=== PATIENT | female | born 1975 | race Hispanic/Latino ===

== ENCOUNTER 2021-12-18 13:10 | Emergency (ER) | payer SELFPAY ==
[~2021-12-18 13:10] MED LIST: Iopamidol 300 61% 100 ML VIAL FS ONE
[2021-12-18] MEDS ORDERED: Ondansetron PF 4 MG/2 ML Vial ONE (13:55)
[2021-12-18 14:05] LABS: #Eosinphils 0.1 10x3/uL (0.0-0.5); #Monocytes 0.6 10x3/uL (0.0-1.1); #Neutrophils 2.1 10x3/uL (1.5-8.4); %Basophils 0.7 % (0.0-2.0); %Eosinophils 1.9 % (0.0-6.0); %Lymphocytes 34.4 % (18.0-47.0); %Monocytes 13.3 % (0.0-10.0); %Neutrophils 49.7 % (40.0-75.0); Hemoglobin 14.3 g/dL (12.0-15.5); Mean Corpuscular HGB CONC 33.6 g/dL (32.0-36.0); Mean Corpuscular Hemoglobin 31.6 pg (27.0-33.0); Mean Corpuscular Volume 93.8 fl (81.6-98.3); Platelet Count 200 10x3/uL (150-450); RBC Distribution Width 13.6 % (11.5-14.5); Red Blood Cell (RBC) Count 4.53 10x6/uL (3.90-5.03); White Blood Cell (WBC) Count 4.2 10x3/uL (3.5-10.5)
[2021-12-18 14:18] LABS: INR-International Normal Ratio 1.1; PTT 30.7 sec (22.0-33.0); Prothrombin Time 11.9 sec (9.5-12.1)
[2021-12-18 14:25] LABS: ALT (SGPT) 2403 U/L (8-55); AST (SGOT) 1954 U/L (5-34); Albumin 4.2 g/dL (3.5-5.0); Alkaline Phosphatase 183 U/L (40-110); Anion Gap 17 mmol/L (10-20); BUN (Urea Nitrogen) 10 mg/dL (7.0-18.7); Bilirubin, Total 6.7 mg/dL (0.2-1.2); Calc. Creatinine Clearance 0 mL/min (70-130); Calcium 9.2 mg/dL (7.8-10.44); Carbon Dioxide 21 mmol/L (22-29); Chloride 107 mmol/L (98-107); Estimated GFR 94; Globulin 3.2 g/dL (2.4-3.5); Glucose 111 mg/dL (70-105); Lipase 47 U/L (8-78); Magnesium 1.9 mg/dL (1.6-2.6); Potassium 3.9 mmol/L (3.5-5.1); Protein, Total 7.4 g/dL (6.0-8.3); Sodium 141 mmol/L (136-145)
[2021-12-18 17:37] LABS: Acetaminophen Less than 10.0 mcg/mL (10.0-30.0)
[2021-12-18 17:59] LABS: SARS-CoV-2 NAA Rapid Test Not Detected (NotDetected)
== END 2021-12-18 18:13 | disposition short-term general hospital (02) ==
LOC: CSHERS 13:10
DX: K72.00 Acute and subacute hepatic failure without coma (principal); Z20.822 Contact with and (suspected) exposure to COVID-19
CPT/HCPCS: 36415; 74177; 80053; 80143; 82140; 83605; 83690; 83735; 84443; 84484; 85025; 85610; 85730; 93005; 96374; 80307; J2405; Q9967; U0002

== ENCOUNTER 2022-01-10 14:10 | Inpatient (IN) | payer SELFPAY ==
[2022-01-10 14:47] LABS: #Eosinphils 0.1 10x3/uL (0.0-0.5); #Monocytes 0.9 10x3/uL (0.0-1.1); #Neutrophils 6.9 10x3/uL (1.5-8.4); %Basophils 0.3 % (0.0-2.0); %Eosinophils 0.5 % (0.0-6.0); %Lymphocytes 23.4 % (18.0-47.0); %Monocytes 8.7 % (0.0-10.0); %Neutrophils 66.7 % (40.0-75.0); Hemoglobin 13.7 g/dL (12.0-15.5); Mean Corpuscular HGB CONC 34.1 g/dL (32.0-36.0); Mean Corpuscular Hemoglobin 32.2 pg (27.0-33.0); Mean Corpuscular Volume 94.4 fl (81.6-98.3); Mean Platelet Volume 10.9 fl (7.4-10.4); Platelet Count 235 10x3/uL (150-450); RBC Distribution Width 15.3 % (11.5-14.5); Red Blood Cell (RBC) Count 4.26 10x6/uL (3.90-5.03); White Blood Cell (WBC) Count 10.4 10x3/uL (3.5-10.5)
[2022-01-10 14:52] LABS: Bilirubin Neg (Negative); Blood, Urine 10 (Negative); Clarity Sl. Cloudy (Clear); Glucose, Urine (Dipstick) Normal (Negative); Ketone, Urine Negative (Negative); Leukocyte 25 (Negative); Nitrite Negative (Negative); Protein, Urine (Dipstick) Negative (Neg-Trace); Specific Gravity, Urine 1.015 (1.005-1.030); Urobilinogen Normal mg/dL (Less than 2)
[2022-01-10 14:53] LABS: Pregnancy Test - Urine (BHCG) Negative (Negative); Pregu Control Bar Appear? YES (CONTROL BAR)
[2022-01-10 14:54] LABS: Pregu Control Background? CLEAR/WHITE (CLR/WHITE); Specific Gravity 1.015 (1.002-1.036)
[2022-01-10 15:08] LABS: ALT (SGPT) 917 U/L (8-55); AST (SGOT) 298 U/L (5-34); Albumin 4.1 g/dL (3.5-5.0); Alkaline Phosphatase 145 U/L (40-110); Anion Gap 12 mmol/L (10-20); BUN (Urea Nitrogen) 9 mg/dL (7.0-18.7); Bilirubin, Total 2.2 mg/dL (0.2-1.2); Calc. Creatinine Clearance 0 mL/min (70-130); Calcium 9.2 mg/dL (7.8-10.44); Carbon Dioxide 28 mmol/L (22-29); Chloride 104 mmol/L (98-107); Estimated GFR 98; Globulin 3.1 g/dL (2.4-3.5); Glucose 113 mg/dL (70-105); Potassium 3.6 mmol/L (3.5-5.1); Protein, Total 7.2 g/dL (6.0-8.3); Sodium 140 mmol/L (136-145)
[2022-01-10 15:12] LABS: Bacteria/HPF 2+ HPF (None Seen); RBC/HPF 0-3 HPF (0-3); Squamous Epithelial 0-3 HPF (0-3)
[2022-01-10] MEDS ORDERED: Ondansetron PF 4 MG/2 ML Vial ONE (15:20)
[2022-01-10] MEDS ORDERED: Ketorolac Tromethamine 30 MG/ML VIAL ONE (15:20)
[2022-01-10] MEDS ORDERED: Morphine 4 MG/ML VIAL ONE ×2 (15:20→17:50)
[2022-01-10] MEDS ORDERED: HYDROmorphone 0.5 MG/0.5 ML SYRINGE SLOW IVP STA (18:00)
[2022-01-10] MEDS ORDERED: Ondansetron PF 4 MG/2 ML Vial IVP PRN (18:01)
[2022-01-10] MEDS ORDERED: Bisacodyl 5 MG TAB PO PRN (18:01)
[2022-01-10] MEDS ORDERED: Senokot S 8.6-50 MG TAB PO PRN (18:01)
[2022-01-10] MEDS ORDERED: Acetaminophen 325 MG TAB PO PRN ×3 (18:01→18:54)
[2022-01-10] MEDS ORDERED: HYDROmorphone 0.5 MG/0.5 ML SYRINGE SLOW IVP PRN (18:04)
[2022-01-10] MEDS ORDERED: HYDROmorphone 0.5 MG/0.5 ML SYRINGE ONE (18:06)
[2022-01-10] MEDS ORDERED: Piperacillin/Tazobactam 4.5 GM VIAL ONE (18:20)
[2022-01-10 18:21] LABS: PTT 25.9 sec (22.0-33.0); Prothrombin Time 10.7 sec (9.5-12.1)
[2022-01-10] MEDS ORDERED: Hydrocortisone Sod Succ/PF 100 mg/2 ml Vial IVP SCH (22:15)
[2022-01-10] MEDS ORDERED: Hydrocortisone Sod Succ/PF 100 mg/2 ml Vial ONE (22:43)
[2022-01-10 23:31] LABS: SARS-CoV-2 NAA Rapid Test Not Detected (NotDetected)
[2022-01-10 23:33] VITALS: BMI 29.1
[2022-01-10] MEDS: Morphine 4 MG/ML VIAL SLOW IVP PRN (23:45)
[2022-01-10] MEDS: Sodium Chloride 0.9% 1,000 ML IV SCH (23:52)
[2022-01-11] MEDS: Piperacillin/Tazobactam 3.375 GM in Sodium Chloride 0.9% 100 ML IVPB SCH ×4 (02:41→17:36)
[2022-01-11 04:54] LABS: Prothrombin Time 11.2 sec (9.5-12.1)
[2022-01-11 04:55] LABS: #Monocytes 0.1 10x3/uL (0.0-1.1); #Neutrophils 5.6 10x3/uL (1.5-8.4); %Basophils 0.2 % (0.0-2.0); %Lymphocytes 10.8 % (18.0-47.0); %Neutrophils 86.8 % (40.0-75.0); Hemoglobin 13.8 g/dL (12.0-15.5); Mean Corpuscular HGB CONC 33.7 g/dL (32.0-36.0); Mean Corpuscular Hemoglobin 31.6 pg (27.0-33.0); Mean Corpuscular Volume 93.6 fl (81.6-98.3); Platelet Count 222 10x3/uL (150-450); RBC Distribution Width 15.3 % (11.5-14.5); Red Blood Cell (RBC) Count 4.37 10x6/uL (3.90-5.03); White Blood Cell (WBC) Count 6.5 10x3/uL (3.5-10.5)
[2022-01-11 05:00] LABS: ALT (SGPT) 857 U/L (8-55); AST (SGOT) 289 U/L (5-34); Albumin 3.8 g/dL (3.5-5.0); Alkaline Phosphatase 114 U/L (40-110); Anion Gap 10 mmol/L (10-20); BUN (Urea Nitrogen) 8 mg/dL (7.0-18.7); Bilirubin, Total 2.6 mg/dL (0.2-1.2); Calc. Creatinine Clearance 123 mL/min (70-130); Calcium 8.8 mg/dL (7.8-10.44); Carbon Dioxide 24 mmol/L (22-29); Chloride 104 mmol/L (98-107); Estimated GFR 107; Globulin 2.9 g/dL (2.4-3.5); Glucose 145 mg/dL (70-105); Potassium 4.4 mmol/L (3.5-5.1); Protein, Total 6.7 g/dL (6.0-8.3); Sodium 134 mmol/L (136-145)
[2022-01-11] MEDS: Morphine 4 MG/ML VIAL SLOW IVP PRN (05:22)
[2022-01-11] MEDS: Sodium Chloride 0.9% 1,000 ML IV SCH ×2 (07:59→10:13)
[2022-01-11] MEDS ORDERED: Hydrocortisone Sod Succ/PF 100 mg/2 ml Vial IVP SCH (09:00)
[2022-01-11] MEDS: Enoxaparin Sodium 40 MG/0.4 ML SYRINGE SC SCH (09:23)
[2022-01-11] MEDS ORDERED: Rocuronium Bromide 10 MG/ML (10ML VIAL) ONE (09:30)
[2022-01-11] MEDS ORDERED: PROPOFOL 20 ML ONE (09:30)
[2022-01-11] MEDS ORDERED: Dexamethasone 4 mg/ml Vial ONE (09:31)
[2022-01-11] MEDS ORDERED: Ondansetron PF 4 MG/2 ML Vial ONE (09:31)
[2022-01-11] MEDS ORDERED: Lidocaine 2% PF 5 ML VIAL ONE (09:31)
[2022-01-11] MEDS ORDERED: Fentanyl 100 MCG/2 ML VIAL ONE (09:52)
[2022-01-11] MEDS ORDERED: Metoclopramide HCl 10 MG/2 ML VIAL ONE (09:52)
[2022-01-11] MEDS ORDERED: EPINEPHrine 1 MG/ML AMP ONE (10:01)
[2022-01-11] MEDS ORDERED: Bupivacaine 0.25% HCL 30 ML VIAL ONE (10:01)
[2022-01-11] MEDS ORDERED: Ketorolac Tromethamine 30 MG/ML VIAL ONE (10:28)
[2022-01-11] MEDS ORDERED: Glycopyrrolate 0.2 MG/ML 5 ML SYRINGE ONE (10:34)
[2022-01-11] MEDS ORDERED: traMADol HCl 50 MG TAB PO PRN (16:40)
[2022-01-11] MEDS ORDERED: Ibuprofen 800 MG TAB PO PRN (16:43)
[2022-01-11] MEDS ORDERED: Morphine 4 MG/ML VIAL SLOW IVP PRN ×2 (18:25→18:38)
[2022-01-11] MEDS ORDERED: HYDROcodone/Acetaminophen 5/325 mg Tablet PO PRN (18:29)
[2022-01-11] MEDS ORDERED: Acetaminophen 325 MG TAB PO PRN (18:33)
[2022-01-11] MEDS ORDERED: predniSONE 20 MG TAB PO SCH (18:45)
[2022-01-11] MEDS: Famotidine 20 MG TAB PO SCH (20:06)
[2022-01-12 05:45] LABS: ALT (SGPT) 624 U/L (8-55); AST (SGOT) 196 U/L (5-34); Albumin 3.2 g/dL (3.5-5.0); Alkaline Phosphatase 97 U/L (40-110); Anion Gap 11 mmol/L (10-20); BUN (Urea Nitrogen) 13 mg/dL (7.0-18.7); Bilirubin, Direct 1.1 mg/dL (0.1-0.3); Calc. Creatinine Clearance 115 mL/min (70-130); Calcium 8.3 mg/dL (7.8-10.44); Carbon Dioxide 24 mmol/L (22-29); Chloride 107 mmol/L (98-107); Estimated GFR 98; Globulin 2.5 g/dL (2.4-3.5); Glucose 145 mg/dL (70-105); Potassium 3.9 mmol/L (3.5-5.1); Protein, Total 5.7 g/dL (6.0-8.3); Sodium 138 mmol/L (136-145)
[2022-01-12] MEDS: Enoxaparin Sodium 40 MG/0.4 ML SYRINGE SC SCH (07:55)
[2022-01-12] MEDS: Famotidine 20 MG TAB PO SCH (07:55)
[2022-01-12] MEDS ORDERED: predniSONE 20 MG TAB PO SCH (08:00)
[2022-01-12 11:25] VITALS: BP 127/67; TEMP 98.1
== END 2022-01-12 13:20 | disposition home or self-care (01) | DRG 742 ==
LOC: SUATTDRO 14:10 → CSHERS 14:10 → CSHERHOLD 20:47 → CSHPED 23:40
PROVIDERS: ADMIT Internal Medicine; ATTEND Family Medicine
PROC: 0UB04ZZ Excision of Right Ovary, Percutaneous Endoscopic Approach (ICD-10-PCS; principal; 2022-01-11)
PROC: 0UB54ZZ Excision of Right Fallopian Tube, Percutaneous Endoscopic Approach (ICD-10-PCS; 2022-01-11)
DX: N83.511 Torsion of right ovary and ovarian pedicle (principal); N39.0 Urinary tract infection, site not specified; N83.9 Noninflammatory disorder of ovary, fallopian tube and broad ligament, unspecified; N83.291 Other ovarian cyst, right side; Z90.49 Acquired absence of other specified parts of digestive tract; K71.6 Toxic liver disease with hepatitis, not elsewhere classified; T65.891A Toxic effect of other specified substances, accidental (unintentional), initial encounter
CPT/HCPCS: 36415; 74177; 76705; 76856; 80053; 81003; 81015; 81025; 82140; 82247; 85025; 85610; 85730; 87040; 87086; 88112; 88305; 94760; 96361; 96365; 96375; J0171; J1100; J1170; J1650; J1720; J1885; J2001; J2270; J2405; J2543; J2704; J2765; J3010; J3490; J7050; J7512; Q9967; S0020; U0002